=== PATIENT | male | born 1950 | race African-American/Black ===

== ENCOUNTER 2020-07-29 14:42 | Inpatient (IN) | payer OTHER ==
[2020-07-29 16:04] VITALS: BMI 22.5
[2020-07-30] MEDS ORDERED: P-EPHED 60MG/TRIPROLIDI 2.5MG TABLET PO PRN (07:15)
[2020-07-30] MEDS ORDERED: guaiFENesin 200 MG/10 ML 10 ML UNIT-DOSE CUPS PO PRN (07:15)
[2020-07-30] MEDS ORDERED: MAGNESIUM CITRATE 300 ML BOTTLE PO PRN (07:15)
[2020-07-30] MEDS ORDERED: MAG HYDROX/AL HYDROX/SIMETH 30 ML UNIT-DOSE CUP PO PRN (07:15)
[2020-07-30] MEDS ORDERED: NICOTINE POLACRILEX 2 MG GUM BC PRN (07:15)
[2020-07-30] MEDS ORDERED: MAGNESIUM HYDROX 2400MG/30ML ORAL SUSPENSION 30 ML CUP PO PRN (07:15)
[2020-07-30] MEDS ORDERED: LOPERAMIDE HCL 2 MG CAPSULE PO PRN (07:15)
[2020-07-30] MEDS: PRENATAL VITAMINS W/ FOLIC ACID TABLET (FP) PO SCH (09:59)
[2020-07-30] MEDS: NICOTINE 7 MG/24 HOURS TOPICAL PATCH TD SCH (09:59)
[2020-07-30] MEDS ORDERED: hydrOXYzine PAMOATE 25 MG CAPSULE (FP) PO SCH (10:00)
[2020-07-30 15:35] LABS: HEMOGLOBIN 13.2 GM/dL (11.7-16.9); MCH 30.2 pg (25.7-33.7); MEAN CELL VOLUME 91.7 fl (80-96); MEAN PLT VOLUME 10.4 fl (7.5-11.1); PLATELET COUNT 230 K/MM3 (134-434); RBC 4.36 M/mm3 (4.00-5.60); RDW 16.3 % (11.9-15.9); WHITE BLOOD COUNT 8.2 K/mm3 (4.0-10.0)
[2020-07-30 15:40] LABS: CALCIUM 9.1 mg/dL (8.5-10.1)
[2020-07-30 15:41] LABS: BLOOD UREA NITROGEN 29.6 mg/dL (7-18)
[2020-07-30 15:45] LABS: BILIRUBIN,TOTAL 0.7 mg/dL (0.2-1); TOT PROT 6.9 g/dl (6.4-8.2)
[2020-07-30] MEDS: THIAMINE HCL 100 MG TABLET (FP) PO SCH (22:03)
[2020-07-30] MEDS: MELATONIN 5 MG TABLETS PO SCH (22:04)
[2020-07-31] MEDS: IBUPROFEN 400 MG TABLET (FP) PO PRN (07:14)
[2020-07-31] MEDS: PRENATAL VITAMINS W/ FOLIC ACID TABLET (FP) PO SCH (09:54)
[2020-07-31] MEDS: NICOTINE 7 MG/24 HOURS TOPICAL PATCH TD SCH (09:55)
[2020-07-31] MEDS: ASPIRIN COATED 81 MG TABLET.EC PO SCH (13:04)
[2020-07-31] MEDS: amLODIPine BESYLATE 5 MG TABLET (FP) PO SCH (13:05)
[2020-07-31] MEDS: ATORVASTATIN CA 40 MG TABLET (FP) PO SCH (13:05)
[2020-07-31] MEDS: THIAMINE HCL 100 MG TABLET (FP) PO SCH (21:19)
[2020-07-31] MEDS: MELATONIN 5 MG TABLETS PO SCH (21:19)
[2020-07-31] MEDS: CARVEDILOL 3.125 MG TABLET (FP) PO SCH (21:19)
[2020-08-01] MEDS: ACETAMINOPHEN 325 MG TABLET (FP) PO PRN (06:59)
[2020-08-01] MEDS: PRENATAL VITAMINS W/ FOLIC ACID TABLET (FP) PO SCH (09:45)
[2020-08-01] MEDS: CARVEDILOL 3.125 MG TABLET (FP) PO SCH ×2 (09:46→21:15)
[2020-08-01] MEDS: amLODIPine BESYLATE 5 MG TABLET (FP) PO SCH (09:46)
[2020-08-01] MEDS: NICOTINE 7 MG/24 HOURS TOPICAL PATCH TD SCH (09:46)
[2020-08-01] MEDS: ATORVASTATIN CA 40 MG TABLET (FP) PO SCH (09:46)
[2020-08-01] MEDS: ASPIRIN COATED 81 MG TABLET.EC PO SCH (09:46)
[2020-08-01] MEDS: IBUPROFEN 400 MG TABLET (FP) PO PRN (21:15)
[2020-08-01] MEDS: MELATONIN 5 MG TABLETS PO SCH (21:15)
[2020-08-01] MEDS: THIAMINE HCL 100 MG TABLET (FP) PO SCH (21:15)
[2020-08-02 02:15] LABS: EPI CELLS 2 /uL (0-25.1); HYALINE CASTS 0 /uL (0-3.1); URINE APPEARANCE CLEAR; URINE BACTERIA 23 /uL (0-1359); URINE BILIRUBIN NEGATIVE (NEGATIVE); URINE COLOR YELLOW; URINE GLUCOSE (UA) NEGATIVE (NEGATIVE); URINE KETONE NEGATIVE (NEGATIVE); URINE LEUK ESTERASE NEGATIVE (NEGATIVE); URINE NITRITE NEGATIVE (NEGATIVE); URINE PROTEIN 2+ (NEGATIVE); URINE RBC 1 /uL (0-23.9); URINE UROBILINOGEN 0.2 mg/dL (0.2-1.0); URINE WBC 1 /uL (0-25.8)
[2020-08-02] MEDS: IBUPROFEN 400 MG TABLET (FP) PO PRN (06:14)
[2020-08-02] MEDS ORDERED: PT OWN MED DRAWER 7, Y5N ONE ×2 (08:54→18:47)
[2020-08-02] MEDS: CARVEDILOL 3.125 MG TABLET (FP) PO SCH ×2 (10:12→21:32)
[2020-08-02] MEDS: amLODIPine BESYLATE 5 MG TABLET (FP) PO SCH (10:12)
[2020-08-02] MEDS: ATORVASTATIN CA 40 MG TABLET (FP) PO SCH (10:12)
[2020-08-02] MEDS: ASPIRIN COATED 81 MG TABLET.EC PO SCH (10:12)
[2020-08-02] MEDS: PRENATAL VITAMINS W/ FOLIC ACID TABLET (FP) PO SCH (10:13)
[2020-08-02] MEDS: NICOTINE 7 MG/24 HOURS TOPICAL PATCH TD SCH (10:13)
[2020-08-02] MEDS: MELATONIN 5 MG TABLETS PO SCH (21:32)
[2020-08-02] MEDS: THIAMINE HCL 100 MG TABLET (FP) PO SCH (21:33)
[2020-08-03] MEDS: ASPIRIN COATED 81 MG TABLET.EC PO SCH (10:00)
[2020-08-03] MEDS: amLODIPine BESYLATE 5 MG TABLET (FP) PO SCH (10:00)
[2020-08-03] MEDS: CARVEDILOL 3.125 MG TABLET (FP) PO SCH ×2 (10:00→21:38)
[2020-08-03] MEDS: NICOTINE 7 MG/24 HOURS TOPICAL PATCH TD SCH (10:00)
[2020-08-03] MEDS: PRENATAL VITAMINS W/ FOLIC ACID TABLET (FP) PO SCH (10:00)
[2020-08-03] MEDS: ATORVASTATIN CA 40 MG TABLET (FP) PO SCH (10:00)
[2020-08-03] MEDS: ACETAMINOPHEN 325 MG TABLET (FP) PO PRN (10:02)
[2020-08-03] MEDS: MELATONIN 5 MG TABLETS PO SCH (21:38)
[2020-08-03] MEDS: THIAMINE HCL 100 MG TABLET (FP) PO SCH (21:38)
[2020-08-04] MEDS: PRENATAL VITAMINS W/ FOLIC ACID TABLET (FP) PO SCH (10:06)
[2020-08-04] MEDS: amLODIPine BESYLATE 5 MG TABLET (FP) PO SCH (10:07)
[2020-08-04] MEDS: NICOTINE 7 MG/24 HOURS TOPICAL PATCH TD SCH (10:07)
[2020-08-04] MEDS: CARVEDILOL 3.125 MG TABLET (FP) PO SCH ×2 (10:07→21:18)
[2020-08-04] MEDS: ATORVASTATIN CA 40 MG TABLET (FP) PO SCH (10:07)
[2020-08-04] MEDS: ASPIRIN COATED 81 MG TABLET.EC PO SCH (10:07)
[2020-08-04] MEDS: THIAMINE HCL 100 MG TABLET (FP) PO SCH (21:18)
[2020-08-04] MEDS: MELATONIN 5 MG TABLETS PO SCH (21:18)
[2020-08-05] MEDS: ATORVASTATIN CA 40 MG TABLET (FP) PO SCH (09:48)
[2020-08-05] MEDS: amLODIPine BESYLATE 5 MG TABLET (FP) PO SCH (09:48)
[2020-08-05] MEDS: ASPIRIN COATED 81 MG TABLET.EC PO SCH (09:48)
[2020-08-05] MEDS: PRENATAL VITAMINS W/ FOLIC ACID TABLET (FP) PO SCH (09:48)
[2020-08-05] MEDS: NICOTINE 7 MG/24 HOURS TOPICAL PATCH TD SCH (09:48)
[2020-08-05] MEDS: CARVEDILOL 3.125 MG TABLET (FP) PO SCH ×2 (09:48→21:18)
[2020-08-05] MEDS: MELATONIN 5 MG TABLETS PO SCH (21:18)
[2020-08-05] MEDS: THIAMINE HCL 100 MG TABLET (FP) PO SCH (21:18)
[2020-08-06] MEDS: ASPIRIN COATED 81 MG TABLET.EC PO SCH (10:41)
[2020-08-06] MEDS: amLODIPine BESYLATE 5 MG TABLET (FP) PO SCH (10:41)
[2020-08-06] MEDS: PRENATAL VITAMINS W/ FOLIC ACID TABLET (FP) PO SCH (10:41)
[2020-08-06] MEDS: CARVEDILOL 3.125 MG TABLET (FP) PO SCH ×2 (10:41→21:14)
[2020-08-06] MEDS: ATORVASTATIN CA 40 MG TABLET (FP) PO SCH (10:41)
[2020-08-06] MEDS: NICOTINE 7 MG/24 HOURS TOPICAL PATCH TD SCH (10:43)
[2020-08-06] MEDS: MELATONIN 5 MG TABLETS PO SCH (21:14)
[2020-08-06] MEDS: THIAMINE HCL 100 MG TABLET (FP) PO SCH (21:14)
[2020-08-07] MEDS: CARVEDILOL 3.125 MG TABLET (FP) PO SCH ×2 (09:57→21:11)
[2020-08-07] MEDS: ASPIRIN COATED 81 MG TABLET.EC PO SCH (09:57)
[2020-08-07] MEDS: PRENATAL VITAMINS W/ FOLIC ACID TABLET (FP) PO SCH (09:57)
[2020-08-07] MEDS: ATORVASTATIN CA 40 MG TABLET (FP) PO SCH (09:57)
[2020-08-07] MEDS: NICOTINE 7 MG/24 HOURS TOPICAL PATCH TD SCH (09:57)
[2020-08-07] MEDS: amLODIPine BESYLATE 5 MG TABLET (FP) PO SCH (09:57)
[2020-08-07] MEDS: THIAMINE HCL 100 MG TABLET (FP) PO SCH (21:11)
[2020-08-07] MEDS: MELATONIN 5 MG TABLETS PO SCH (21:11)
[2020-08-08] MEDS: CARVEDILOL 3.125 MG TABLET (FP) PO SCH ×2 (09:41→21:24)
[2020-08-08] MEDS: ASPIRIN COATED 81 MG TABLET.EC PO SCH (09:41)
[2020-08-08] MEDS: ATORVASTATIN CA 40 MG TABLET (FP) PO SCH (09:41)
[2020-08-08] MEDS: PRENATAL VITAMINS W/ FOLIC ACID TABLET (FP) PO SCH (09:41)
[2020-08-08] MEDS: amLODIPine BESYLATE 5 MG TABLET (FP) PO SCH (09:41)
[2020-08-08] MEDS: NICOTINE 7 MG/24 HOURS TOPICAL PATCH TD SCH (09:42)
[2020-08-08] MEDS: MELATONIN 5 MG TABLETS PO SCH (21:24)
[2020-08-08] MEDS: THIAMINE HCL 100 MG TABLET (FP) PO SCH (21:24)
[2020-08-09] MEDS: NICOTINE 7 MG/24 HOURS TOPICAL PATCH TD SCH (10:16)
[2020-08-09] MEDS: PRENATAL VITAMINS W/ FOLIC ACID TABLET (FP) PO SCH (10:16)
[2020-08-09] MEDS: CARVEDILOL 3.125 MG TABLET (FP) PO SCH ×2 (10:16→21:17)
[2020-08-09] MEDS: amLODIPine BESYLATE 5 MG TABLET (FP) PO SCH (10:16)
[2020-08-09] MEDS: ATORVASTATIN CA 40 MG TABLET (FP) PO SCH (10:16)
[2020-08-09] MEDS: ASPIRIN COATED 81 MG TABLET.EC PO SCH (10:16)
[2020-08-09] MEDS ORDERED: PT OWN MED DRAWER 7, Y5N ONE (14:49)
[2020-08-09] MEDS: MELATONIN 5 MG TABLETS PO SCH (21:17)
[2020-08-09] MEDS: THIAMINE HCL 100 MG TABLET (FP) PO SCH (21:17)
[2020-08-10] MEDS: PRENATAL VITAMINS W/ FOLIC ACID TABLET (FP) PO SCH (09:59)
[2020-08-10] MEDS: amLODIPine BESYLATE 5 MG TABLET (FP) PO SCH (09:59)
[2020-08-10] MEDS: CARVEDILOL 3.125 MG TABLET (FP) PO SCH ×2 (09:59→21:13)
[2020-08-10] MEDS: ATORVASTATIN CA 40 MG TABLET (FP) PO SCH (09:59)
[2020-08-10] MEDS: ASPIRIN COATED 81 MG TABLET.EC PO SCH (09:59)
[2020-08-10] MEDS: NICOTINE 7 MG/24 HOURS TOPICAL PATCH TD SCH (10:00)
[2020-08-10 10:17] LABS: CALCIUM 9.2 mg/dL (8.5-10.1)
[2020-08-10 10:18] LABS: ALBUMIN 3.4 g/dl (3.4-5.0); BLOOD UREA NITROGEN 26.2 mg/dL (7-18)
[2020-08-10 10:22] LABS: BILIRUBIN,TOTAL 0.5 mg/dL (0.2-1); TOT PROT 7.5 g/dl (6.4-8.2)
[2020-08-10] MEDS: MELATONIN 5 MG TABLETS PO SCH (21:13)
[2020-08-10] MEDS: THIAMINE HCL 100 MG TABLET (FP) PO SCH (21:13)
[2020-08-11] MEDS: amLODIPine BESYLATE 5 MG TABLET (FP) PO SCH (09:46)
[2020-08-11] MEDS: ASPIRIN COATED 81 MG TABLET.EC PO SCH (09:46)
[2020-08-11] MEDS: CARVEDILOL 3.125 MG TABLET (FP) PO SCH ×2 (09:46→21:26)
[2020-08-11] MEDS: ATORVASTATIN CA 40 MG TABLET (FP) PO SCH (09:46)
[2020-08-11] MEDS: PRENATAL VITAMINS W/ FOLIC ACID TABLET (FP) PO SCH (09:46)
[2020-08-11] MEDS: NICOTINE 7 MG/24 HOURS TOPICAL PATCH TD SCH (09:47)
[2020-08-11] MEDS: MELATONIN 5 MG TABLETS PO SCH (21:26)
[2020-08-11] MEDS: THIAMINE HCL 100 MG TABLET (FP) PO SCH (21:26)
[2020-08-12] MEDS: amLODIPine BESYLATE 5 MG TABLET (FP) PO SCH (09:50)
[2020-08-12] MEDS: ASPIRIN COATED 81 MG TABLET.EC PO SCH (09:50)
[2020-08-12] MEDS: PRENATAL VITAMINS W/ FOLIC ACID TABLET (FP) PO SCH (09:50)
[2020-08-12] MEDS: CARVEDILOL 3.125 MG TABLET (FP) PO SCH ×2 (09:50→21:12)
[2020-08-12] MEDS: ATORVASTATIN CA 40 MG TABLET (FP) PO SCH (09:50)
[2020-08-12] MEDS: NICOTINE 7 MG/24 HOURS TOPICAL PATCH TD SCH (09:51)
[2020-08-12] MEDS: MELATONIN 5 MG TABLETS PO SCH (21:12)
[2020-08-12] MEDS: THIAMINE HCL 100 MG TABLET (FP) PO SCH (21:12)
[2020-08-13] MEDS: ATORVASTATIN CA 40 MG TABLET (FP) PO SCH (10:12)
[2020-08-13] MEDS: PRENATAL VITAMINS W/ FOLIC ACID TABLET (FP) PO SCH (10:12)
[2020-08-13] MEDS: CARVEDILOL 3.125 MG TABLET (FP) PO SCH ×2 (10:12→21:18)
[2020-08-13] MEDS: amLODIPine BESYLATE 5 MG TABLET (FP) PO SCH (10:12)
[2020-08-13] MEDS: ASPIRIN COATED 81 MG TABLET.EC PO SCH (10:12)
[2020-08-13] MEDS: NICOTINE 7 MG/24 HOURS TOPICAL PATCH TD SCH (10:13)
[2020-08-13] MEDS: MELATONIN 5 MG TABLETS PO SCH (21:18)
[2020-08-13] MEDS: THIAMINE HCL 100 MG TABLET (FP) PO SCH (21:18)
[2020-08-14] MEDS: amLODIPine BESYLATE 5 MG TABLET (FP) PO SCH (09:36)
[2020-08-14] MEDS: ATORVASTATIN CA 40 MG TABLET (FP) PO SCH (09:36)
[2020-08-14] MEDS: CARVEDILOL 3.125 MG TABLET (FP) PO SCH ×2 (09:36→21:20)
[2020-08-14] MEDS: ASPIRIN COATED 81 MG TABLET.EC PO SCH (09:36)
[2020-08-14] MEDS: PRENATAL VITAMINS W/ FOLIC ACID TABLET (FP) PO SCH (09:36)
[2020-08-14] MEDS: NICOTINE 7 MG/24 HOURS TOPICAL PATCH TD SCH (09:50)
[2020-08-14] MEDS: THIAMINE HCL 100 MG TABLET (FP) PO SCH (21:20)
[2020-08-14] MEDS: MELATONIN 5 MG TABLETS PO SCH (21:21)
[2020-08-15] MEDS: PRENATAL VITAMINS W/ FOLIC ACID TABLET (FP) PO SCH (09:46)
[2020-08-15] MEDS: ATORVASTATIN CA 40 MG TABLET (FP) PO SCH (09:46)
[2020-08-15] MEDS: amLODIPine BESYLATE 5 MG TABLET (FP) PO SCH (09:46)
[2020-08-15] MEDS: CARVEDILOL 3.125 MG TABLET (FP) PO SCH ×2 (09:46→21:29)
[2020-08-15] MEDS: ASPIRIN COATED 81 MG TABLET.EC PO SCH (09:46)
[2020-08-15] MEDS: NICOTINE 7 MG/24 HOURS TOPICAL PATCH TD SCH (10:08)
[2020-08-15] MEDS: MELATONIN 5 MG TABLETS PO SCH (21:30)
[2020-08-15] MEDS: THIAMINE HCL 100 MG TABLET (FP) PO SCH (21:30)
[2020-08-16] MEDS: amLODIPine BESYLATE 5 MG TABLET (FP) PO SCH (09:56)
[2020-08-16] MEDS: ATORVASTATIN CA 40 MG TABLET (FP) PO SCH (09:56)
[2020-08-16] MEDS: ASPIRIN COATED 81 MG TABLET.EC PO SCH (09:56)
[2020-08-16] MEDS: PRENATAL VITAMINS W/ FOLIC ACID TABLET (FP) PO SCH (09:57)
[2020-08-16] MEDS: NICOTINE 7 MG/24 HOURS TOPICAL PATCH TD SCH (09:57)
[2020-08-16] MEDS: CARVEDILOL 3.125 MG TABLET (FP) PO SCH ×2 (10:50→21:12)
[2020-08-16] MEDS: SILVER SULFADIAZINE 1% TOP CREAM 50 GM JAR TP SCH (13:45)
[2020-08-16] MEDS: MELATONIN 5 MG TABLETS PO SCH (21:12)
[2020-08-16] MEDS: THIAMINE HCL 100 MG TABLET (FP) PO SCH (21:12)
[2020-08-17] MEDS: ASPIRIN COATED 81 MG TABLET.EC PO SCH (09:39)
[2020-08-17] MEDS: PRENATAL VITAMINS W/ FOLIC ACID TABLET (FP) PO SCH (09:39)
[2020-08-17] MEDS: NICOTINE 7 MG/24 HOURS TOPICAL PATCH TD SCH (09:40)
[2020-08-17] MEDS: CARVEDILOL 3.125 MG TABLET (FP) PO SCH ×2 (09:40→21:16)
[2020-08-17] MEDS: amLODIPine BESYLATE 5 MG TABLET (FP) PO SCH (09:40)
[2020-08-17] MEDS: SILVER SULFADIAZINE 1% TOP CREAM 50 GM JAR TP SCH (09:40)
[2020-08-17] MEDS: ATORVASTATIN CA 40 MG TABLET (FP) PO SCH (09:40)
[2020-08-17] MEDS: THIAMINE HCL 100 MG TABLET (FP) PO SCH (21:16)
[2020-08-17] MEDS: MELATONIN 5 MG TABLETS PO SCH (21:16)
[2020-08-18] MEDS: PRENATAL VITAMINS W/ FOLIC ACID TABLET (FP) PO SCH (09:56)
[2020-08-18] MEDS: SILVER SULFADIAZINE 1% TOP CREAM 50 GM JAR TP SCH (09:56)
[2020-08-18] MEDS: CARVEDILOL 3.125 MG TABLET (FP) PO SCH ×2 (09:56→21:12)
[2020-08-18] MEDS: ASPIRIN COATED 81 MG TABLET.EC PO SCH (09:56)
[2020-08-18] MEDS: ATORVASTATIN CA 40 MG TABLET (FP) PO SCH (09:56)
[2020-08-18] MEDS: amLODIPine BESYLATE 5 MG TABLET (FP) PO SCH (09:56)
[2020-08-18] MEDS: NICOTINE 7 MG/24 HOURS TOPICAL PATCH TD SCH (09:56)
[2020-08-18] MEDS ORDERED: PT OWN MED DRAWER 7, Y5N ONE (19:02)
[2020-08-18] MEDS: THIAMINE HCL 100 MG TABLET (FP) PO SCH (21:12)
[2020-08-18] MEDS: MELATONIN 5 MG TABLETS PO SCH (21:12)
[2020-08-19] MEDS: PRENATAL VITAMINS W/ FOLIC ACID TABLET (FP) PO SCH (09:57)
[2020-08-19] MEDS: SILVER SULFADIAZINE 1% TOP CREAM 50 GM JAR TP SCH (09:57)
[2020-08-19] MEDS: ASPIRIN COATED 81 MG TABLET.EC PO SCH (09:58)
[2020-08-19] MEDS: amLODIPine BESYLATE 5 MG TABLET (FP) PO SCH (09:58)
[2020-08-19] MEDS: NICOTINE 7 MG/24 HOURS TOPICAL PATCH TD SCH (09:58)
[2020-08-19] MEDS: ATORVASTATIN CA 40 MG TABLET (FP) PO SCH (09:58)
[2020-08-19] MEDS: CARVEDILOL 3.125 MG TABLET (FP) PO SCH ×2 (09:58→21:35)
[2020-08-19] MEDS ORDERED: PT OWN MED DRAWER 7, Y5N ONE (20:46)
[2020-08-19] MEDS: MELATONIN 5 MG TABLETS PO SCH (21:34)
[2020-08-19] MEDS: THIAMINE HCL 100 MG TABLET (FP) PO SCH (21:35)
[2020-08-20 08:55] VITALS: BP 153/80; PULSE 70; TEMP 97.2
[2020-08-20] MEDS: ATORVASTATIN CA 40 MG TABLET (FP) PO SCH (09:40)
[2020-08-20] MEDS: amLODIPine BESYLATE 5 MG TABLET (FP) PO SCH (09:40)
[2020-08-20] MEDS: ASPIRIN COATED 81 MG TABLET.EC PO SCH (09:41)
[2020-08-20] MEDS: PRENATAL VITAMINS W/ FOLIC ACID TABLET (FP) PO SCH (09:41)
[2020-08-20] MEDS: CARVEDILOL 3.125 MG TABLET (FP) PO SCH (09:42)
[2020-08-20] MEDS ORDERED: PT OWN MED DRAWER 7, Y5N ONE (09:42)
[2020-08-20] MEDS: SILVER SULFADIAZINE 1% TOP CREAM 50 GM JAR TP SCH (09:43)
[2020-08-20] MEDS: NICOTINE 7 MG/24 HOURS TOPICAL PATCH TD SCH (09:43)
== END 2020-08-20 09:40 | disposition home or self-care (01) | DRG 895 ==
LOC: YASAS 14:42 → Y3W 19:58
PROVIDERS: ADMIT Allergy & Immunology; ATTEND Allergy & Immunology
PROC: HZ42ZZZ Group Counseling for Substance Abuse Treatment, Cognitive-Behavioral (ICD-10-PCS; principal; 2020-07-29)
DX: F11.20 Opioid dependence, uncomplicated (principal); F10.20 Alcohol dependence, uncomplicated; F17.210 Nicotine dependence, cigarettes, uncomplicated; L89.152 Pressure ulcer of sacral region, stage 2; I25.10 Atherosclerotic heart disease of native coronary artery without angina pectoris; I10 Essential (primary) hypertension; Z95.5 Presence of coronary angioplasty implant and graft; I25.2 Old myocardial infarction; R94.4 Abnormal results of kidney function studies
CPT/HCPCS: 36415; 80053; 81003; 85027; 86780; 93005; 93010; 99283-25; C9803; U0003; U0005

== ENCOUNTER 2020-07-29 21:57 | Emergency (ER) | payer OTHER ==
[2020-07-29 22:22] VITALS: BMI 23.0
[2020-07-30 05:49] VITALS: BP 136/83; PULSE 87; TEMP 98.4
== END 2020-07-30 06:26 | disposition home or self-care (01) ==
LOC: JER 21:57
DX: L89.302 Pressure ulcer of unspecified buttock, stage 2 (principal)
CPT/HCPCS: 99283-25